=== PATIENT | female | born 1975 | race Caucasian/White ===

== ENCOUNTER 2022-10-01 05:10 | Inpatient (IN) | payer SELFPAY ==
[2022-09-30 17:08] VITALS: BMI 33.2
[2022-09-30] MEDS: ACETAMINOPHEN 1000 MG/100 ML BAG IVPB ONE (18:06)
[2022-09-30 18:17] LABS: HEMATOCRIT 33.4 % (32.4-45.2); HEMOGLOBIN 10.5 GM/dL (10.7-15.3); LYMPH % 4.3 % (8-40); MCH 21.9 pg (25.7-33.7); MCHC 31.6 g/dl (32.0-36.0); MEAN CELL VOLUME 69.3 fl (80-96); MEAN PLT VOLUME 7.9 fl (7.5-11.1); MONO % 4.9 % (3.8-10.2); NEUT % 90.8 % (42.8-82.8); PLATELET COUNT 321 10^3/uL (134-434); RBC 4.82 M/mm3 (3.60-5.2); RDW 17.8 % (11.6-15.6); WHITE BLOOD COUNT 20.7 K/mm3 (4.0-10.0)
[2022-09-30 18:24] LABS: INR 1.15 (0.83-1.09); PROTHROMBIN TIME (PATIENT) 13.3 SEC (9.7-13.0)
[2022-09-30 18:35] LABS: POTASSIUM 3.8 mmol/L (3.5-5.1)
[2022-09-30 18:38] LABS: BLOOD UREA NITROGEN 6.1 mg/dL (7-18)
[2022-09-30 18:41] LABS: CREATININE 0.6 mg/dL (0.55-1.3)
[2022-09-30 18:42] LABS: BILIRUBIN,TOTAL 0.6 mg/dL (0.2-1)
[2022-09-30 18:43] LABS: TOT PROT 7.7 g/dl (6.4-8.2)
[2022-09-30 18:52] LABS: ANISOCYTOSIS 2+; MACROCYTOSIS 0; OVALOCYTE 1+
[2022-09-30 23:51] LABS: EPI CELLS 6 /uL (0-25.1); HYALINE CASTS 0 /uL (0-3.1); URINE APPEARANCE CLEAR; URINE BACTERIA 43 /uL (0-1359); URINE BILIRUBIN NEGATIVE (NEGATIVE); URINE COLOR YELLOW; URINE GLUCOSE (UA) NEGATIVE (NEGATIVE); URINE KETONE 1+ (NEGATIVE); URINE LEUK ESTERASE NEGATIVE (NEGATIVE); URINE NITRITE NEGATIVE (NEGATIVE); URINE PROTEIN NEGATIVE (NEGATIVE); URINE RBC 8 /uL (0-23.9); URINE WBC 1 /uL (0-25.8)
[2022-10-01] MEDS: ACETAMINOPHEN 1000 MG/100 ML BAG IVPB ONE (04:30)
[2022-10-01] MEDS: LACTATED RINGERS SOLUTION 1,000 ML IV SCH (04:40)
[~2022-10-01 05:10] MED LIST: ACETAMINOPHEN INJECTION 100 ML IVPB ONE; BUPIVACAINE HCL/PF 0.25% (2.5MG/ML) 10 ML VIAL IJ ONE; DEXAMETHASONE SOD PHOSPHATE 4 MG/1 ML VIAL ONE; FAMOTIDINE 20 MG/50 ML IVPB 20 MG/50 ML MG IVPB ONE; GLYCOPYRROLATE 0.2 MG/1 ML VIAL ONE; LACTATED RINGERS SOLUTION 1,000 ML IV SCH; LACTATED RINGERS SOLUTION 1000 ML INFUS.BAG IV ONE; MIDAZOLAM HCL 2 MG/2 ML SINGLE DOSE VIAL ONE; NEOSTIGMINE METHYLSULFATE 0.5 MG/1 ML - 10 ML MDV ONE; ONDANSETRON 4 MG/2 ML VIAL IVPB ONE; ONDANSETRON 4 MG/2 ML VIAL IVPUSH PRN; ONDANSETRON 4 MG/2 ML VIAL ONE; PIPERACILLIN/TAZOB 3.375 GM 3.375 GM in DEXTROSE 5%-WATER - 50 ML IVPB ONE; PIPERACILLIN/TAZOB 3.375 GM 3.375 GM in DEXTROSE 5%-WATER - 50 ML IVPB SCH; PIPERACILLIN/TAZOB 3.375 GM 3.375 GM/50 ML BAG IVPB ONE; PROPOFOL 20 ML ONE; ROCURONIUM BROMIDE 50 MG/5 ML SYRINGE ONE; SUCCINYLCHOLINE CHLORIDE 200 MG/10 ML SYRINGE ONE; morphine CARPU-JECT 4 MG/1 ML DISP.SYRIN IVPUSH ONE; morphine SULFATE 4 MG/ML VIAL IVPUSH ONE; morphine SULFATE 4 MG/ML VIAL ONE
[2022-10-01] MEDS ORDERED: ONDANSETRON 4 MG/2 ML VIAL IVPUSH PRN (06:06)
[2022-10-01] MEDS ORDERED: PIPERACILLIN/TAZOB 3.375 GM 3.375 GM in DEXTROSE 5%-WATER - 50 ML IVPB SCH (07:30)
[2022-10-01] MEDS: PIPERACILLIN/TAZOB 3.375 GM 3.375 GM in DEXTROSE 5%-WATER - 50 ML IVPB SCH ×3 (07:43→20:30)
[2022-10-01 08:40] LABS: HEMATOCRIT 30.7 % (32.4-45.2); HEMOGLOBIN 9.9 GM/dL (10.7-15.3); MCH 22.4 pg (25.7-33.7); MCHC 32.4 g/dl (32.0-36.0); MEAN CELL VOLUME 69.2 fl (80-96); MEAN PLT VOLUME 7.6 fl (7.5-11.1); PLATELET COUNT 279 10^3/uL (134-434); RBC 4.43 M/mm3 (3.60-5.2); RDW 17.2 % (11.6-15.6); WHITE BLOOD COUNT 18.2 K/mm3 (4.0-10.0)
[2022-10-01 09:06] LABS: BLOOD UREA NITROGEN 7.6 mg/dL (7-18); CALCIUM 8.6 mg/dL (8.5-10.1); MAGNESIUM 2.2 mg/dL (1.8-2.4)
[2022-10-01 09:09] LABS: CREATININE 0.7 mg/dL (0.55-1.3); PHOSPHOROUS 3.8 mg/dL (2.5-4.9)
[2022-10-01 09:11] LABS: TOT PROT 6.8 g/dl (6.4-8.2)
[2022-10-01 09:27] LABS: ALBUMIN 3.1 g/dl (3.4-5.0)
[2022-10-01] MEDS ORDERED: ACETAMINOPHEN 325 MG TABLET (FP) PO PRN (10:32)
[2022-10-01] MEDS: ACETAMINOPHEN 325 MG TABLET (FP) PO PRN ×2 (12:44→21:26)
[2022-10-01] MEDS ORDERED: oxyCODONE HCL 5 MG TABLET PO PRN (17:52)
[2022-10-02] MEDS: PIPERACILLIN/TAZOB 3.375 GM 3.375 GM in DEXTROSE 5%-WATER - 50 ML IVPB SCH (01:55)
[2022-10-02] MEDS: LACTATED RINGERS SOLUTION 1,000 ML IV SCH (06:54)
[2022-10-02 09:31] LABS: BASO % 0.2 % (0-2.0); EOS % 0.3 % (0-4.5); HEMATOCRIT 30.7 % (32.4-45.2); HEMOGLOBIN 9.5 GM/dL (10.7-15.3); LYMPH % 6.9 % (8-40); MEAN CELL VOLUME 70.9 fl (80-96); MEAN PLT VOLUME 8.7 fl (7.5-11.1); MONO % 5.8 % (3.8-10.2); NEUT % 86.8 % (42.8-82.8); PLATELET COUNT 302 10^3/uL (134-434); RBC 4.34 M/mm3 (3.60-5.2); RDW 17.8 % (11.6-15.6); WHITE BLOOD COUNT 12.9 K/mm3 (4.0-10.0)
[2022-10-02 09:46] LABS: POTASSIUM 3.6 mmol/L (3.5-5.1)
[2022-10-02 09:48] LABS: ALBUMIN 3.1 g/dl (3.4-5.0); CALCIUM 8.6 mg/dL (8.5-10.1); MAGNESIUM 2.4 mg/dL (1.8-2.4)
[2022-10-02 09:49] LABS: BLOOD UREA NITROGEN 7.8 mg/dL (7-18)
[2022-10-02 09:51] LABS: CREATININE 0.6 mg/dL (0.55-1.3)
[2022-10-02 09:53] LABS: BILIRUBIN,TOTAL 0.7 mg/dL (0.2-1)
[2022-10-02 09:56] LABS: TOT PROT 6.8 g/dl (6.4-8.2)
[2022-10-02] MEDS ORDERED: PANTOPRAZOLE 40 MG TABLET PO SCH (10:00)
[2022-10-02] MEDS ORDERED: oxyCODONE HCL 5 MG TABLET PO PRN (13:25)
[2022-10-02 14:42] VITALS: BP 114/74; PULSE 92; RESP 17; TEMP 98.1
[2022-10-02] MEDS ORDERED: AMOX TR/POT CLAV 875MG/125MG TABLETS (FP) PO SCH (17:30)
== END 2022-10-02 18:51 | disposition home or self-care (01) | DRG 225 ==
LOC: JER 05:10 → J8W 05:10 → JERBED 05:54 → J8W 05:54 → JERBED 05:55 → JER 05:55
PROVIDERS: ADMIT Internal Medicine; ATTEND Nurse Practitioner Family
PROC: 0DTJ4ZZ Resection of Appendix, Percutaneous Endoscopic Approach (ICD-10-PCS; principal; 2022-10-01)
DX: K35.33 Acute appendicitis with perforation, localized peritonitis, and gangrene, with abscess (principal); K56.609 Unspecified intestinal obstruction, unspecified as to partial versus complete obstruction; D64.9 Anemia, unspecified; D72.829 Elevated white blood cell count, unspecified
CPT/HCPCS: 36415; 74177-TC; 80053; 81003; 83690; 83735; 84100; 84703; 85025; 85027; 85610; 86850; 86900; 86901; 87070; 87075; 87076; 87086; 87186; 87205; 88304-TC; 94760; Q9967